=== PATIENT | female | born 1955 | race Caucasian/White ===

== ENCOUNTER 2016-05-06 15:33 | Emergency (ER) | payer OTHER, MEDICAID ==
[~2016-05-06] VITALS: Ht 152.4 cm; Wt 100.0 kg
[~2016-05-06 15:33] MED LIST: DESE1CRE TOP
[2016-05-06 15:37] VITALS: BP 184/82; PULSE 114; RESP 20; TEMP 98.5; O2SAT 95
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
[2016-05-06] MEDS ORDERED: CYCL1TAB29 PO (17:18)
[2016-05-06] MEDS ORDERED: NAPR500 PO (17:18)
--- NOTE | 2016-05-07 16:49 | EKG ---
Date Performed: 05/06/2016 Time Performed: 16:47:33 PTAGE: 61 years EKG: SINUS TACHYCARDIA Nonspecific ST and T wave abnormalities ABNORMAL RHYTHM ECG PREVIOUS TRACING : 09/09/2015 13.49 Since previous tracing, no significant change noted DOCTOR: Dudley Mendoza Interpretating Date/Time 05/07/2016 16:48:02
== END 2016-05-06 18:27 | disposition home or self-care (01) ==
LOC: NEPB 15:33
DX: G44.309 Post-traumatic headache, unspecified, not intractable (principal); S20.211A Contusion of right front wall of thorax, initial encounter; R00.0 Tachycardia, unspecified; E11.9 Type 2 diabetes mellitus without complications; I10 Essential (primary) hypertension; V43.52XA Car driver injured in collision with other type car in traffic accident, initial encounter
CPT/HCPCS: 70450; 71020; 93005